=== PATIENT | male | born 1990 | race Caucasian/White ===

== ENCOUNTER 2016-09-17 04:55 | Emergency (ER) | payer OTHER ==
[~2016-09-17] VITALS: Ht 172.7 cm; Wt 93.0 kg
[2016-09-17 04:55] VITALS: BP_SYST 134
[2016-09-17 05:04] VITALS: BP_SYST 134
== END 2016-09-17 05:04 ==
LOC: SED 04:55
DX: Z02.89 Encounter for other administrative examinations (principal)